=== PATIENT | male | born 1955 | race Caucasian/White ===

== ENCOUNTER 2020-02-25 13:40 | Inpatient (IN) | payer MEDICAID ==
[~2020-02-25] VITALS: Ht 182.9 cm; Wt 102.1 kg
[2020-02-25] MEDS ORDERED: SODIUM CHLORIDE 0.9% 500 ML IVB ONE (13:53)
[2020-02-25] MEDS ORDERED: NITROGLYCERIN 0.4 MG SL TAB SL PRN (15:15)
[2020-02-25] MEDS ORDERED: MORPHINE SULF INJ 2 MG/ML SYRINGE 1ML IV PRN (15:15)
[2020-02-25] MEDS ORDERED: ACETAMINOPHEN 325 MG TAB PO PRN (15:15)
[2020-02-25 15:33] LABS: Basophils # (auto) 0 10 ^3/uL (0-0.2); Basophils % (auto) 0.3 % (0.0-2.0); Eosinophils # (auto) 0 10 ^3/uL (0-0.8); Hematocrit 46.4 % (41.0-53.0); Hemoglobin 16.1 g/dL (13.5-17.5); Lymphocytes # (auto) 0.6 10 ^3/uL (0.4-5.4); Lymphocytes % (auto) 4.4 % (10.0-50.0); Mean Corpuscular Hemoglobin 31.9 pg (28.0-32.0); Mean Corpuscular Hgb Conc. 34.8 g/dL (32.0-36.0); Mean Corpuscular Volume 91.6 fL (80.0-100.0); Monocytes # (auto) 1.5 10 ^3/uL (0-1.3); Monocytes % (auto) 11.4 % (0.0-12.0); Neutrophils # (auto) 11.1 10 ^3/uL (1.6-8.6); Neutrophils % (auto) 83.9 % (37.0-80.0); Platelet Count (auto) 177 10^3/uL (140-450); Red Blood Cells 5.06 10^6/uL (4.5-5.90); Red Cell Distribution Width 15.7 % (11.8-14.3); White Blood Cell 13.2 10^3/uL (4.4-10.8)
[2020-02-25 15:52] LABS: Alanine Aminotransferase 99 U/L (16-61); Albumin 3.2 g/dL (3.4-5.0); Anion Gap 14 (5-15); Aspartate Aminotransferase 321 U/L (15-37); BUN/Creatinine Ratio 28.4; Blood Alcohol < 3.0 mg/dL (0-5); Blood Urea Nitrogen 40 mg/dL (7-18); Calcium 8.2 mg/dL (8.5-10.1); Carbon Dioxide 22 mmol/L (21-32); Chloride 100 mmol/L (98-107); GFR African American 65 mL/min; GFR Non-African American 54 mL/min; Glucose 76 mg/dL (74-106); Magnesium 2.3 mg/dL (1.6-2.6); Potassium 3.4 mmol/L (3.5-5.1); Sodium 136 mmol/L (136-145)
[2020-02-25 15:55] LABS: Lactic Acid w/Reflex 2.1 mmol/L (0.4-2.0)
[2020-02-25] MEDS: FOLIC ACID 1 MG, MULTIPLE VITAMIN 10 ML, MAGNESIUM SULF SDV 50% 8 MEQ, THIAMINE INJ 100... INJ SCH ×5 (15:56)
[2020-02-25 15:58] LABS: Alkaline Phosphatase 91 U/L (45-117); Bilirubin, Total 1.6 mg/dL (0.2-1.0); Total Protein 7.5 g/dL (6.4-8.2)
[2020-02-25] MEDS ORDERED: LORazepam 2MG/ML-1ML VIAL IV PRN (16:00)
[2020-02-25] MEDS: chlordiazePOXIDE HCL 25 MG CAP PO SCH (17:53)
[2020-02-25] MEDS ORDERED: POTASSIUM EFFERVESENT TAB 25 MEQ PO ONE (18:15)
[2020-02-25] MEDS ORDERED: ONDANSETRON HCL 4 MG/2 ML VIAL IV PRN (18:15)
[2020-02-25] MEDS ORDERED: hydrALAZINE HCL 20 MG/ML VL IV PRN (18:15)
--- NOTE | 2020-02-25 18:18 | NUR ---
WOUND CARE NOTE: Wound care in to see patient per wound care request regarding multiple wounds that are noted present on admission. Patient is 64 y/o male with admitting diagnosis of Metabolic Encephalopathy. Patient is resting in ED bed #12. Patient is awake, alert but not oriented. He's able to assist in turning and repositioning and his Aryan score is 18. Skin/wound assessment done with the assistance of patient' s nurse, SKYLAR Sotelo. Noted patient's bilateral knee, bailey and Rt elbow with multiple scabbed abrasion and scratches. Wounds are covered with black scabs, mayda wound is bright red, no drainage/odor noted. On reports, patient is in rehab facility and he's found running amongst the cactus. Cleansed patient's wounds with Betadine and left open to air per MD order. Photograph of patient's wounds are taken upon admission for reference. All wound stats can be found in nurse intervention wound assessment part. Assisted patient to turn to his L side to examine sacral and back. NO other wound noted, no pressure injury noted. Patient tolerated well. No further wound care monitoring needed at this time. RECOMMENDATION: Nursing to continue Daily/PRN cleaning of multiple wounds with Betadine per MD order, redistribute pressure points with pillows, reconsult for active wound, pressure injury, low Aryan score if 12 and below. Addendum: 02/25/20 at 1853 by April Avila RN Amended: Links added.
[2020-02-25] MEDS ORDERED: LORazepam 2MG/ML-1ML VIAL ONE (18:35)
[2020-02-25] MEDS ORDERED: HALOPERIDOL LACTATE 5 MG/ML INJ VIAL ONE (18:35)
[2020-02-25] MEDS ORDERED: LORazepam 2MG/ML-1ML VIAL IV ONE (18:45)
[2020-02-25] MEDS ORDERED: HALOPERIDOL LACTATE 5 MG/ML INJ VIAL IM ONE (18:45)
[2020-02-25 19:47] LABS: CRP High Sensitivity 5.66 mg/dL (< 0.3)
[2020-02-25 21:05] LABS: Amphetamine Screen, Urine NEGATIVE (NEGATIVE); Barbiturate Scree,Urine NEGATIVE (NEGATIVE); Benzodiazephine Screen, Urine NEGATIVE (NEGATIVE); Cannabinoid Screen, Urine NEGATIVE (NEGATIVE); Cocaine Screen, Urine NEGATIVE (NEGATIVE); Opiate Scree,Urine NEGATIVE (NEGATIVE); Phencyclidine Screen, Urine NEGATIVE (NEGATIVE)
[2020-02-25 21:19] LABS: Urine Bacteria NONE SEEN /hpf (None Seen); Urine Blood 2+ /uL (Negative); Urine Hyaline Cast MOD /lpf (0 - 2); Urine Mucus FEW (None Seen); Urine WBC 2 /hpf (0 - 3)
[2020-02-25 21:27] LABS: Alcohol, Urine < 3.0 mg/dL (0-10)
[2020-02-25] MEDS: METOPROLOL TARTRATE 25 MG TAB PO SCH (22:00)
[2020-02-25] MEDS: ATORVASTATIN 20 MG TAB PO SCH (22:00)
[2020-02-25] MEDS: CLINDAMYCIN 300MG IV 50 ML IV SCH (23:51)
[2020-02-26] MEDS: chlordiazePOXIDE HCL 25 MG CAP PO SCH ×3 (00:11→12:00)
[2020-02-26] MEDS: CLINDAMYCIN 300MG IV 50 ML IV SCH ×3 (06:32→22:05)
[2020-02-26] MEDS: SODIUM CHLORIDE 0.9% 1,000 ML IV SCH ×2 (09:19→17:15)
[2020-02-26] MEDS ORDERED: POTASSIUM CHL 20 Meq TABLET PO ONE ×2 (10:00→16:15)
[2020-02-26] MEDS: METOPROLOL TARTRATE 25 MG TAB PO SCH (10:00)
[2020-02-26] MEDS ORDERED: LISINOPRIL 10 MG TAB PO SCH (10:00)
[2020-02-26] MEDS: FAMOTIDINE 20 MG TAB PO SCH (10:09)
[2020-02-26] MEDS: ASPirin-EC 81 mg tab PO SCH (10:09)
[2020-02-26] MEDS: ADENOSINE 82 MG in GIVE UN-DILUTED 0 ML IV STA (10:32)
[2020-02-26] MEDS: FOLIC ACID 1 MG, MULTIPLE VITAMIN 10 ML, MAGNESIUM SULF SDV 50% 8 MEQ, THIAMINE INJ 100... INJ SCH ×5 (12:00)
[2020-02-26 14:39] LABS: Basophils # (auto) 0 10 ^3/uL (0-0.2); Basophils % (auto) 0.3 % (0.0-2.0); Eosinophils # (auto) 0.1 10 ^3/uL (0-0.8); Eosinophils % (auto) 0.9 % (0.0-7.0); Hematocrit 38.8 % (41.0-53.0); Hemoglobin 13.6 g/dL (13.5-17.5); Lymphocytes # (auto) 0.7 10 ^3/uL (0.4-5.4); Lymphocytes % (auto) 9.8 % (10.0-50.0); Mean Corpuscular Hemoglobin 32.3 pg (28.0-32.0); Mean Corpuscular Hgb Conc. 35.1 g/dL (32.0-36.0); Mean Corpuscular Volume 92.2 fL (80.0-100.0); Monocytes # (auto) 0.8 10 ^3/uL (0-1.3); Monocytes % (auto) 10.9 % (0.0-12.0); Neutrophils # (auto) 5.5 10 ^3/uL (1.6-8.6); Neutrophils % (auto) 78.1 % (37.0-80.0); Nucleated Red Blood Cells % 0.1 %; Platelet Count (auto) 140 10^3/uL (140-450); Red Blood Cells 4.21 10^6/uL (4.5-5.90); Red Cell Distribution Width 15.7 % (11.8-14.3); White Blood Cell 7.1 10^3/uL (4.4-10.8)
[2020-02-26 15:04] LABS: Albumin 2.5 g/dL (3.4-5.0); BUN/Creatinine Ratio 17.3; Calcium 7.4 mg/dL (8.5-10.1)
[2020-02-26 15:08] LABS: Cholesterol 161 mg/dL (< 200)
[2020-02-26 15:11] LABS: HDL Cholesterol 45 mg/dL (40-59); LDL Cholesterol 99 mg/dL (< 100); Triglycerides 101 mg/dL (< 150)
[2020-02-26 15:15] LABS: Bilirubin, Total 0.9 mg/dL (0.2-1.0)
[2020-02-26 15:26] LABS: Potassium 2.9 mmol/L (3.5-5.1)
--- NOTE | 2020-02-26 15:39 | NUR ---
Informed Dr. Daily regarding K 2.9, received new orders, noted and carried it out. Signed: 02/26/20 at 1539 by YONATAN CHRISTINE RN
[2020-02-26] MEDS: POTASSIUM CHL 20MEQ/100ML 100 ML IV SCH ×2 (16:48→18:55)
--- NOTE | 2020-02-26 17:00 | NUR ---
Telemetry admit from ER RIAZ STOREY admitted to Telemetry unit after SBAR received. Patient oriented to YONATAN CHRISTINE, primary RN, unit, room, bed, and unit policies regarding patient care and visiting hours. Patient now on continuous telemetry monitoring, tele box #50 and telemetry reading on arrival to unit is . Patient placed on bedside oxygen, weighed by bed scale and encouraged to call if they need something. All questions and concerns addressed, patient verbalized understanding.
[2020-02-26 17:08] VITALS: BP 113/66
[2020-02-26 17:13] VITALS: BP 113/66
[2020-02-26] MEDS: HYDROcodone-ACET 5/325MG TAB PO PRN (17:47)
--- NOTE | 2020-02-26 19:15 | NUR ---
Opening Shift Note Assumed care of patient. Patient is awake, alert, and oriented x 4. No S/S of respiratory distress noted. Patient is on RA with SpO2 95%. No pain reported at this time. Bed in the lowest position, brakes locked, bed rails up x 2, and call light within reach. IV is asymptomatic and patent. Will continue to monitor. Patient was instructed on POC and to call for assist as needed. Will continue to monitor for changes Q1hr and PRN.
[2020-02-26 20:00] VITALS: BP 144/99
[2020-02-26] MEDS: MORPHINE SULF INJ 2 MG/ML SYRINGE 1ML IV PRN (20:59)
[2020-02-26 22:00] VITALS: BP 144/99
[2020-02-26] MEDS: ATORVASTATIN 20 MG TAB PO SCH (22:05)
[2020-02-27] MEDS: SODIUM CHLORIDE 0.9% 1,000 ML IV SCH ×3 (01:18→15:58)
[2020-02-27] MEDS: MORPHINE SULF INJ 2 MG/ML SYRINGE 1ML IV PRN ×5 (01:18→20:53)
[2020-02-27 05:00] VITALS: BP 133/67
[2020-02-27] MEDS: CLINDAMYCIN 300MG IV 50 ML IV SCH ×3 (06:02→22:45)
--- NOTE | 2020-02-27 07:25 | NUR ---
Opening Shift Note Assumed care of patient, pt awake and alert laying down in bed. Patient is alert and awake with even and unlabored respirations. Pt is on RA with No S/S of distress/SOB at this time. Bed is in lowest position, wheels are locked, side rails up x2, and call light is within reach. Pt currently awaiting a stress test. Pt instructed on POC and to call for assist PRN, will continue to monitor for changes Q1hr and PRN.
[2020-02-27 09:00] VITALS: BP 123/84
--- NOTE | 2020-02-27 09:00 | NUR ---
PATIENT OFF UNIT FOR STRESS TEST BY WHEEL CHAIR. PT IS ALERT AND AWAKE WITH EVEN AND UNLABORED RESPIRATIONS.
[2020-02-27] MEDS: FAMOTIDINE 20 MG TAB PO SCH (10:00)
[2020-02-27] MEDS: ADENOSINE 82 MG in GIVE UN-DILUTED 0 ML IV STA (10:04)
--- NOTE | 2020-02-27 10:25 | NUR ---
PT RETURNED TO FLOOR FROM STRESS TEST. PATIENT ALERT AND AWAKE SITTING UP IN BED. PATIENT IS ON ROOM AIR WITH EVEN AND UNLABORED RESPIRATIONS. PT C/O PAIN ON LEFT SIDE WILL BRING PAIN MEDICATION.
[2020-02-27] MEDS: ASPirin-EC 81 mg tab PO SCH (11:17)
[2020-02-27] MEDS: HYDROcodone-ACET 5/325MG TAB PO PRN ×2 (11:20→18:20)
[2020-02-27 11:38] LABS: Magnesium 2.4 mg/dL (1.6-2.6); Potassium 3.7 mmol/L (3.5-5.1)
[2020-02-27 13:00] VITALS: BP 130/80
[2020-02-27] MEDS: FOLIC ACID 1 MG, MULTIPLE VITAMIN 10 ML, MAGNESIUM SULF SDV 50% 8 MEQ, THIAMINE INJ 100... INJ SCH ×5 (14:05)
--- NOTE | 2020-02-27 14:45 | NUR ---
PT C/O ANXIETY PT C/O OF ANXIETY AND BEING RESTLESS. PT REQUESTING ATIVAN. WILL GIVE. WILL CONTINUE TO MONITOR Q1H AND PRN.
[2020-02-27] MEDS: LORazepam 2MG/ML-1ML VIAL IV PRN ×2 (14:52→22:45)
--- NOTE | 2020-02-27 16:30 | NUR ---
Rounds Patient awake and alert laying in bed. No S/S of distress/SOB. Will continue to monitor changes q1hr and PRN.
[2020-02-27 17:00] VITALS: BP 151/90
--- NOTE | 2020-02-27 17:30 | NUR ---
patient up walking around nurses station with PT. Pt requiring standby / contact guard assistance. Patient tolerating well. Will continue to monitor q1h and PRN.
--- NOTE | 2020-02-27 18:58 | NUR ---
Closing Note Patient awake and alert laying in bed. No S/S of distress/SOB or pain. Bed is in lowest position, wheels are locked, side rails up x2, and call light is within reach. Care Endorsed to NOC RN.
--- NOTE | 2020-02-27 19:20 | NUR ---
Opening Shift Note Received report and assumed care of patient. Patient is awake and alert. No signs or symptoms of distress noted. Patient complaining of left rib pain 9/10. Patient is not due for pain medications at this time. Offered patient nonpharmacological interventions. Instructed patient on plan of care and to call for assistance as needed. Will continue to monitor.
[2020-02-27 22:04] VITALS: BP 148/79
[2020-02-27] MEDS: ATORVASTATIN 20 MG TAB PO SCH (22:45)
[2020-02-28] MEDS: MORPHINE SULF INJ 2 MG/ML SYRINGE 1ML IV PRN ×2 (04:18→10:40)
[2020-02-28 05:00] VITALS: BP 148/80
[2020-02-28] MEDS: CLINDAMYCIN 300MG IV 50 ML IV SCH (05:35)
[2020-02-28] MEDS: LORazepam 2MG/ML-1ML VIAL IV PRN ×3 (05:35→20:02)
[2020-02-28] MEDS: SODIUM CHLORIDE 0.9% 1,000 ML IV SCH (05:40)
[2020-02-28 05:49] LABS: BUN/Creatinine Ratio 15.2; Calcium 7.2 mg/dL (8.5-10.1); Potassium 3.6 mmol/L (3.5-5.1)
[2020-02-28] MEDS: HYDROcodone-ACET 5/325MG TAB PO PRN ×3 (05:51→21:13)
--- NOTE | 2020-02-28 07:30 | NUR ---
Opening Shift Note Assumed care of patient, awake and alert. No S/S of distress/SOB OR PAIN. Instructed on POC and to call for assist PRN, will continue to monitor for changes Q1hr and PRN.
[2020-02-28] MEDS: chlordiazePOXIDE HCL 25 MG CAP PO PRN ×2 (08:25→18:21)
[2020-02-28] MEDS: ASPirin-EC 81 mg tab PO SCH (08:28)
[2020-02-28] MEDS: FAMOTIDINE 20 MG TAB PO SCH (08:37)
[2020-02-28 09:05] VITALS: BP 156/86
[2020-02-28] MEDS: BENAZEPRIL HCL 10 MG TAB PO SCH (10:38)
[2020-02-28] MEDS: FOLIC ACID 1 MG, MULTIPLE VITAMIN 10 ML, MAGNESIUM SULF SDV 50% 8 MEQ, THIAMINE INJ 100... INJ SCH ×5 (12:22)
[2020-02-28 13:14] VITALS: BP 161/78
[2020-02-28] MEDS ORDERED: cloNIDine HCL 0.1 MG TAB PO PRN (15:45)
[2020-02-28 16:37] VITALS: BP 154/86
[2020-02-28] MEDS: ACETAMINOPHEN 500 MG TAB PO PRN (18:21)
--- NOTE | 2020-02-28 18:23 | NUR ---
PT NOTES PT EATING DINNER. NO DISTRESS NOTED. C/O A HEADACHE. NOTED VISIBLE SHAKING. PATIENT GIVEN TYLENOL AND LIBRIUM, PO. TOLERATED WELL.
--- NOTE | 2020-02-28 19:21 | NUR ---
Opening Shift Note Received report and assumed care of patient. Patient is awake and alert. No signs or symptoms of distress noted, patient states rib pain level is 3/10. Patient repositioned for comfort. Instructed patient on plan of care and to call for assistance as needed. Will continue to monitor.
[2020-02-28] MEDS: ATORVASTATIN 20 MG TAB PO SCH (21:11)
[2020-02-28 22:20] VITALS: BP 129/80
[2020-02-29 05:00] VITALS: BP 156/83
[2020-02-29] MEDS: HYDROcodone-ACET 5/325MG TAB PO PRN ×2 (05:07→11:59)
[2020-02-29] MEDS: LORazepam 2MG/ML-1ML VIAL IV PRN ×3 (05:39→17:14)
[2020-02-29] MEDS: ACETAMINOPHEN 500 MG TAB PO PRN (06:52)
[2020-02-29] MEDS: BENAZEPRIL HCL 10 MG TAB PO SCH (08:44)
[2020-02-29] MEDS: ASPirin-EC 81 mg tab PO SCH (08:44)
[2020-02-29 08:50] VITALS: BP 142/73
[2020-02-29] MEDS: FAMOTIDINE 20 MG TAB PO SCH (10:00)
[2020-02-29] MEDS ORDERED: THIAMINE HCL 100 MG TAB PO SCH (10:00)
[2020-02-29] MEDS ORDERED: MULTIPLE VITAMINS W/ MINERALS TAB PO SCH (10:00)
--- NOTE | 2020-02-29 10:45 | NUR ---
TELE PSYCH EVAL IN PROGRESS
--- NOTE | 2020-02-29 11:10 | NUR ---
WOUND CARE PICS TAKEN
[2020-02-29 13:00] VITALS: BP 131/85
--- NOTE | 2020-02-29 13:00 | NUR ---
CALLED FOR TELE-PSYCH EVALUATION REPORT. PER SHOE ASSOCIATE, SHE WILL FAX THE REPORT/RECOMMENDATION.
--- NOTE | 2020-02-29 13:20 | NUR ---
Nutrition Assessment Notes Please refer to link for full assessment notes. Est Energy needs: 6410-0621 kcals (17-20 kcal/kgBW) Est Protein needs: 121-162 gms/day (1.5-2.0 gm/kgIBW) Will continue to monitor and reassess prn. Addendum: 02/29/20 at [address] Amended: Links added.
--- NOTE | 2020-02-29 15:17 | NUR ---
Assessment Patient is a 64-year-old male who is alert and oriented. Prior to admission patient reside at [facility] in [place]. Per patient he is not homeless. Patient stated he will return to [facility] in [place] and his sister will transport him home Informed patient if sister is unable to transport him home we can provide him with a taxi voucher. Patient informed me he received SSI with an amount of [id number]. Patient verbalize understanding discharge plan. Addendum: 02/29/20 at 1518 by LIBRADO MCINTOSH Amended: Links added.
--- NOTE | 2020-02-29 15:33 | NUR ---
PT DECLINED P.T. TODAY.
--- NOTE | 2020-02-29 15:53 | NUR ---
CALLED PT'S SISTER, ANGELI, RE: DISCHARGE. MESSAGE LEFT. WAITING FOR CALL BACK.
[2020-02-29 16:19] VITALS: BP 138/75
--- NOTE | 2020-02-29 17:15 | NUR ---
TRIED CALLING PT'S SISTER AGAIN. MESSAGE FULL. UNABLE TO LEAVE A MESSAGE
--- NOTE | 2020-02-29 17:23 | NUR ---
PER PT, HE CAN GO IN A TAXI AND SOMEONE WILL BE AT [facility] FREE GNOSTICISM TO LET HIM IN. ELECTRONIC COMMUNICATIONS TECHNICIAN CONTACTED FOR A TAXI VOUCHER.
[2020-02-29 17:32] VITALS: BP 142/73
--- NOTE | 2020-02-29 18:26 | NUR ---
[facility] WILL BE HERE IN 20 MINUTES
--- NOTE | 2020-02-29 19:15 | NUR ---
PRESCRIPTION NOTES PT WASN'T ABLE TO GET HIS PRESCRIPTION MEDICATION FROM [facility] DUE TO CO-PAY SO I SPOKE TO [facility] FREE COORDINATOR NAMED ANUSHA AND I TOLD HIM ABOUT THE PRESCRIPTIONS THAT THE PATIENT HAVE. ANUSHA WILL CALL [facility] TOMORROW TO ASK THEM TO TRANSFER THE PRESCRIPTIONS TO THE [facility] NEXT TO THEIR FACILITY. PER ANUSHA, PT IS NOT ALLOWED TO TAKE ANY NARCOTICS OR ANTIDEPRESSANT WHILE IN THEIR FACILITY BUT WILL HOLD THE MEDICATION FOR PATIENT AND WILL ADMINISTER IT IF NECESSARY. I INFORMED ANUSHA THAT THE ANTI-DEPRESSANT WAS RECOMMENDED BY THE PSYCHIATRIST FOR HIS DEPRESSION.
== END 2020-02-29 19:15 | disposition home or self-care (01) | DRG 351 ==
LOC: ER 13:40 → EDBD 13:40 → TELE 13:41 → TELE-WESTW 02-26 15:30
PROVIDERS: ADMIT Nurse Practitioner Acute Care; ATTEND Internal Medicine
DX: M62.82 Rhabdomyolysis (principal); N17.0 Acute kidney failure with tubular necrosis; R65.11 Systemic inflammatory response syndrome (SIRS) of non-infectious origin with acute organ dysfunction; G92 Toxic encephalopathy; I42.7 Cardiomyopathy due to drug and external agent; E44.1 Mild protein-calorie malnutrition; F22 Delusional disorders; E87.6 Hypokalemia; E66.9 Obesity, unspecified; F12.90 Cannabis use, unspecified, uncomplicated; G89.29 Other chronic pain; M54.9 Dorsalgia, unspecified; R79.89 Other specified abnormal findings of blood chemistry; S22.42XA Multiple fractures of ribs, left side, initial encounter for closed fracture; I11.9 Hypertensive heart disease without heart failure; S80.212A Abrasion, left knee, initial encounter; S80.211A Abrasion, right knee, initial encounter; W18.39XA Other fall on same level, initial encounter; E78.5 Hyperlipidemia, unspecified; F11.10 Opioid abuse, uncomplicated; Z86.73 Personal history of transient ischemic attack (TIA), and cerebral infarction without residual deficits; Z79.899 Other long term (current) drug therapy; Z80.9 Family history of malignant neoplasm, unspecified; Z59.0 Homelessness; Z87.828 Personal history of other (healed) physical injury and trauma; Z91.14 Patient's other noncompliance with medication regimen; Y93.89 Activity, other specified; Y92.89 Other specified places as the place of occurrence of the external cause; Y99.8 Other external cause status; Z68.30 Body mass index [BMI] 30.0-30.9, adult; F10.10 Alcohol abuse, uncomplicated
CPT/HCPCS: 36415; 70450; 71101; 78452; 80048; 80053; 80061; 80307; 80320; 81001; 82140; 82550; 83605; 83735; 84132; 84484; 85025; 86141; 93005; 93017; 93306; G0378; J0153; J3480; J3490

== ENCOUNTER 2020-03-03 17:07 | Inpatient (IN) | payer MEDICAID ==
[~2020-03-03] VITALS: Ht 182.9 cm; Wt 101.0 kg
[2020-03-03] MEDS ORDERED: SODIUM CHLORIDE 0.9% 500 ML IV ONE (17:37)
[2020-03-03 18:29] LABS: Basophils # (auto) 0.1 10 ^3/uL (0-0.2); Basophils % (auto) 0.5 % (0.0-2.0); Eosinophils # (auto) 0 10 ^3/uL (0-0.8); Eosinophils % (auto) 0.4 % (0.0-7.0); Hematocrit 29.3 % (41.0-53.0); Hemoglobin 9.9 g/dL (13.5-17.5); Lymphocytes # (auto) 0.7 10 ^3/uL (0.4-5.4); Lymphocytes % (auto) 7.2 % (10.0-50.0); Mean Corpuscular Hemoglobin 31.9 pg (28.0-32.0); Mean Corpuscular Hgb Conc. 33.6 g/dL (32.0-36.0); Mean Corpuscular Volume 94.8 fL (80.0-100.0); Monocytes # (auto) 1.1 10 ^3/uL (0-1.3); Monocytes % (auto) 10.3 % (0.0-12.0); Neutrophils # (auto) 8.4 10 ^3/uL (1.6-8.6); Neutrophils % (auto) 81.6 % (37.0-80.0); Platelet Count (auto) 431 10^3/uL (140-450); Red Blood Cells 3.09 10^6/uL (4.5-5.90); Red Cell Distribution Width 16.2 % (11.8-14.3); White Blood Cell 10.3 10^3/uL (4.4-10.8)
[2020-03-03] MEDS ORDERED: NOREPINEPHRINE 8 MG/250ML KIT 250 ML IV ONE (18:41)
[2020-03-03 18:44] LABS: BUN/Creatinine Ratio 38.3; Calcium 7.2 mg/dL (8.5-10.1); Magnesium 1.9 mg/dL (1.6-2.6); Potassium 4.5 mmol/L (3.5-5.1)
[2020-03-03] MEDS: NOREPINEPHRINE 8 MG/250ML KIT 250 ML IV SCH (18:46)
[2020-03-03 18:54] LABS: Bilirubin, Total 0.2 mg/dL (0.2-1.0)
[2020-03-03 20:39] LABS: Hematocrit 30.3 % (41.0-53.0); Hemoglobin 10.3 g/dL (13.5-17.5)
[2020-03-03] MEDS ORDERED: ONDANSETRON HCL 4 MG/2 ML VIAL IV PRN (21:30)
[2020-03-03] MEDS ORDERED: PANTOPRAZOLE 40mg/50ML NS AE 50 ML IV ONE (21:30)
[2020-03-03] MEDS ORDERED: ALBUMIN 5% 250 ML IV ONE (21:30)
[2020-03-03] MEDS ORDERED: NITROGLYCERIN 0.4 MG SL TAB SL PRN (21:30)
[2020-03-03] MEDS ORDERED: MORPHINE SULF INJ 2 MG/ML SYRINGE 1ML IV PRN (21:30)
[2020-03-03] MEDS: SODIUM CHLORIDE 0.9% 1,000 ML IV SCH (22:10)
[2020-03-03] MEDS: ACETAMINOPHEN 325 MG TAB PO PRN (23:38)
[2020-03-04] VITALS (64 sets, daily range): BP systolic 84–124; BP diastolic 32–68
[2020-03-04 00:03] LABS: INR 1.05 (0.9-1.15); Partial Thromboplastin Time 25.6 sec (23.64-32.05)
[2020-03-04] MEDS: PANTOPRAZOLE 40mg/50ML NS AE 50 ML IV SCH ×5 (03:05→19:49)
[2020-03-04 04:44] LABS: White Blood Cell 10.1 10^3/uL (4.4-10.8)
[2020-03-04 04:47] LABS: Hematocrit 23.5 % (41.0-53.0); Mean Corpuscular Hemoglobin 31.9 pg (28.0-32.0); Mean Corpuscular Volume 93.9 fL (80.0-100.0); Platelet Count (auto) 429 10^3/uL (140-450); Red Blood Cells 2.51 10^6/uL (4.5-5.90)
[2020-03-04 05:10] LABS: Potassium 4.2 mmol/L (3.5-5.1)
[2020-03-04 05:15] LABS: Band Neutrophils % (manual) 0; Basophils % (manual) 0 (0.0-2.0); Blast Cells 0; Eosinophils % (manual) 0 (0-7); Metamyelocytes % 0; Myelocytes % 0; Promyelocytes % 0; Reactive Lymphocytes 0
[2020-03-04 05:16] LABS: Albumin 2.4 g/dL (3.4-5.0); BUN/Creatinine Ratio 35.3; Bilirubin, Total 0.3 mg/dL (0.2-1.0); Calcium 7.3 mg/dL (8.5-10.1)
[2020-03-04 06:06] LABS: Lymphocytes % (manual) 21 (10.0-50.0); Monocytes % (manual) 10 (0-12)
[2020-03-04] MEDS: SODIUM CHLORIDE 0.9% 1,000 ML IV SCH ×3 (11:55→20:14)
[2020-03-04] MEDS: ACETAMINOPHEN 325 MG TAB PO PRN ×2 (12:52→20:26)
[2020-03-04 13:46] LABS: Hematocrit 22.7 % (41.0-53.0); Hemoglobin 7.5 g/dL (13.5-17.5)
[2020-03-04] MEDS: NOREPINEPHRINE 8 MG/250ML KIT 250 ML IV SCH (18:10)
[2020-03-04 20:00] LABS: Hemoglobin 7.6 g/dL (13.5-17.5)
[2020-03-05] VITALS (58 sets, daily range): BP systolic 71–143; BP diastolic 33–70
[2020-03-05] MEDS: PANTOPRAZOLE 40mg/50ML NS AE 50 ML IV SCH ×5 (00:46→22:30)
[2020-03-05 04:24] LABS: Basophils # (auto) 0.1 10 ^3/uL (0-0.2); Basophils % (auto) 0.8 % (0.0-2.0); Eosinophils # (auto) 0.1 10 ^3/uL (0-0.8); Eosinophils % (auto) 1.1 % (0.0-7.0); Hematocrit 16.9 % (41.0-53.0); Lymphocytes # (auto) 1.4 10 ^3/uL (0.4-5.4); Lymphocytes % (auto) 12.3 % (10.0-50.0); Mean Corpuscular Hemoglobin 31.7 pg (28.0-32.0); Mean Corpuscular Hgb Conc. 33.7 g/dL (32.0-36.0); Mean Corpuscular Volume 94.1 fL (80.0-100.0); Monocytes # (auto) 0.9 10 ^3/uL (0-1.3); Monocytes % (auto) 8.2 % (0.0-12.0); Neutrophils # (auto) 8.6 10 ^3/uL (1.6-8.6); Neutrophils % (auto) 77.6 % (37.0-80.0); Nucleated Red Blood Cells % 0.3 %; Platelet Count (auto) 364 10^3/uL (140-450); Red Cell Distribution Width 15.6 % (11.8-14.3); White Blood Cell 11.1 10^3/uL (4.4-10.8)
[2020-03-05 04:26] LABS: Calcium 7.3 mg/dL (8.5-10.1); Hemoglobin 5.7 g/dL (13.5-17.5); Magnesium 1.9 mg/dL (1.6-2.6); Potassium 3.8 mmol/L (3.5-5.1)
[2020-03-05 04:28] LABS: BUN/Creatinine Ratio 28.8
[2020-03-05] MEDS ORDERED: LIDOCAINE VISCOUS 2% 15ML UD ONE (08:12)
[2020-03-05] MEDS ORDERED: MIDAZOLAM HCL 5 MG/ML-1ML VIAL ONE (08:12)
[2020-03-05] MEDS ORDERED: diphenhdrAMINE HCL 50 MG/1 ML VL ONE (08:12)
[2020-03-05] MEDS ORDERED: fentaNYL CITRATE 100 MCG/2 ML VL ONE (08:12)
[2020-03-05] MEDS ORDERED: SODIUM CHLORIDE LOCK 10 ML ONE (08:13)
[2020-03-05 10:13] LABS: Hematocrit 19.9 % (41.0-53.0)
[2020-03-05 10:15] LABS: Hemoglobin 6.6 g/dL (13.5-17.5)
[2020-03-05] MEDS ORDERED: MAGNESIUM SULFATE 1GM/100ML 100 ML IV ONE (13:15)
[2020-03-05] MEDS: SODIUM CHLORIDE 0.9% 1,000 ML IV SCH (13:26)
[2020-03-05] MEDS ORDERED: EPINEPHrine HCL 1 MG/1 ML AMP ONE (15:52)
[2020-03-05] MEDS ORDERED: EPINEPHrine HCL 1 MG/10 ML SYRG ONE (15:53)
[2020-03-05] MEDS: SUCRALFATE 1 GM/10 ML ORAL SUSP PO SCH ×2 (16:52→22:00)
[2020-03-05] MEDS: GOLYTELY 4L KIT PO SCH (17:02)
[2020-03-05] MEDS: ACETAMINOPHEN 325 MG TAB PO PRN (19:58)
[2020-03-05 22:18] LABS: Hematocrit 19.4 % (41.0-53.0)
[2020-03-05 22:21] LABS: Hemoglobin 6.7 g/dL (13.5-17.5)
[2020-03-06] VITALS (42 sets, daily range): BP systolic 86–141; BP diastolic 33–67
[2020-03-06] MEDS: PANTOPRAZOLE 40mg/50ML NS AE 50 ML IV SCH ×2 (03:30→08:50)
[2020-03-06] MEDS: SODIUM CHLORIDE 0.9% 1,000 ML IV SCH ×2 (06:08→22:35)
[2020-03-06] MEDS: GOLYTELY 4L KIT PO SCH ×2 (06:48→16:00)
[2020-03-06] MEDS: SUCRALFATE 1 GM/10 ML ORAL SUSP PO SCH ×4 (06:48→22:00)
[2020-03-06 07:46] LABS: Hematocrit 21.3 % (41.0-53.0); Hemoglobin 7.3 g/dL (13.5-17.5); Red Blood Cells 2.34 10^6/uL (4.5-5.90)
[2020-03-06 07:48] LABS: Mean Corpuscular Hemoglobin 31.3 pg (28.0-32.0); Mean Corpuscular Hgb Conc. 34.4 g/dL (32.0-36.0); Mean Corpuscular Volume 90.8 fL (80.0-100.0); Platelet Count (auto) 257 10^3/uL (140-450); Red Cell Distribution Width 16.3 % (11.8-14.3); White Blood Cell 9.6 10^3/uL (4.4-10.8)
[2020-03-06 07:56] LABS: Potassium 3.7 mmol/L (3.5-5.1)
[2020-03-06 08:02] LABS: Basophils % (manual) 0 (0.0-2.0); Blast Cells 0; Eosinophils % (manual) 0 (0-7); Promyelocytes % 0; Reactive Lymphocytes 0
[2020-03-06 08:53] LABS: Band Neutrophils % (manual) 2; Lymphocytes % (manual) 20 (10.0-50.0); Metamyelocytes % 1; Monocytes % (manual) 6 (0-12); Myelocytes % 2
[2020-03-06] MEDS: PANTOPRAZOLE 40 MG/10 ML VIAL INJ IV SCH ×2 (10:00→22:00)
[2020-03-06] MEDS: ACETAMINOPHEN 325 MG TAB PO PRN ×2 (11:15→20:04)
[2020-03-06] MEDS ORDERED: POTASSIUM CHL 20 Meq TABLET PO ONE (11:30)
[2020-03-06 11:39] LABS: Hemoglobin 7.5 g/dL (13.5-17.5)
[2020-03-06 11:41] LABS: Hematocrit 21.9 % (41.0-53.0)
[2020-03-06 18:35] LABS: Hemoglobin 8.4 g/dL (13.5-17.5)
[2020-03-06 18:37] LABS: Hematocrit 24.6 % (41.0-53.0)
[2020-03-07] VITALS (29 sets, daily range): BP systolic 101–166; BP diastolic 45–80
[2020-03-07 04:09] LABS: Hemoglobin 7.9 g/dL (13.5-17.5)
[2020-03-07 04:12] LABS: Hematocrit 23.3 % (41.0-53.0); Mean Corpuscular Hemoglobin 30.9 pg (28.0-32.0); Mean Corpuscular Hgb Conc. 33.9 g/dL (32.0-36.0); Mean Corpuscular Volume 91.1 fL (80.0-100.0); Platelet Count (auto) 318 10^3/uL (140-450); Red Blood Cells 2.55 10^6/uL (4.5-5.90); Red Cell Distribution Width 16.3 % (11.8-14.3); White Blood Cell 7.9 10^3/uL (4.4-10.8)
[2020-03-07 04:28] LABS: Basophils % (manual) 0 (0.0-2.0); Blast Cells 0; Eosinophils % (manual) 0 (0-7); Metamyelocytes % 0; Myelocytes % 0; Promyelocytes % 0; Reactive Lymphocytes 0
[2020-03-07 04:36] LABS: Potassium 3.8 mmol/L (3.5-5.1)
[2020-03-07 04:43] LABS: BUN/Creatinine Ratio 6.3; Calcium 7.3 mg/dL (8.5-10.1); Magnesium 2.2 mg/dL (1.6-2.6)
[2020-03-07 05:14] LABS: Band Neutrophils % (manual) 2; Lymphocytes % (manual) 12 (10.0-50.0)
[2020-03-07 05:15] LABS: Monocytes % (manual) 5 (0-12)
[2020-03-07] MEDS ORDERED: MAGNESIUM CITRATE SOLUTION 300 ML BTL PO ONE (06:00)
[2020-03-07] MEDS: SUCRALFATE 1 GM/10 ML ORAL SUSP PO SCH ×4 (06:43→22:01)
[2020-03-07] MEDS: GOLYTELY 4L KIT PO SCH (07:00)
[2020-03-07] MEDS: PANTOPRAZOLE 40 MG/10 ML VIAL INJ IV SCH ×2 (09:46→22:00)
[2020-03-07] MEDS ORDERED: SODIUM CHLORIDE LOCK 10 ML ONE (10:38)
[2020-03-07] MEDS ORDERED: diphenhdrAMINE HCL 50 MG/1 ML VL ONE (10:38)
[2020-03-07] MEDS ORDERED: SODIUM CHLORIDE 0.9% 1,000 ML IV SCH (11:00)
[2020-03-07] MEDS: fentaNYL CITRATE 100 MCG/2 ML VL ONE ×2 (14:00→14:03)
[2020-03-07] MEDS: MIDAZOLAM HCL 5 MG/ML-1ML VIAL ONE ×3 (14:00→14:04)
[2020-03-07] MEDS: ACETAMINOPHEN 325 MG TAB PO PRN (17:28)
[2020-03-08] MEDS: ACETAMINOPHEN 325 MG TAB PO PRN ×2 (03:03→20:23)
[2020-03-08 05:00] VITALS: BP 129/71
[2020-03-08] MEDS: SUCRALFATE 1 GM/10 ML ORAL SUSP PO SCH ×4 (05:59→22:26)
[2020-03-08 07:17] LABS: Hematocrit 24.9 % (41.0-53.0); Hemoglobin 8.5 g/dL (13.5-17.5)
[2020-03-08 08:50] VITALS: BP 130/74
[2020-03-08] MEDS: PANTOPRAZOLE 40 MG/10 ML VIAL INJ IV SCH ×2 (11:02→22:26)
[2020-03-08 12:31] VITALS: BP 129/79
[2020-03-08 16:40] VITALS: BP 154/84
[2020-03-08 22:00] VITALS: BP 110/56
[2020-03-09 05:00] VITALS: BP 138/79
[2020-03-09 05:56] LABS: Basophils # (auto) 0.2 10 ^3/uL (0-0.2); Basophils % (auto) 2.6 % (0.0-2.0); Eosinophils # (auto) 0.1 10 ^3/uL (0-0.8); Eosinophils % (auto) 2.2 % (0.0-7.0); Hematocrit 26.9 % (41.0-53.0); Hemoglobin 9.1 g/dL (13.5-17.5); Lymphocytes # (auto) 1.1 10 ^3/uL (0.4-5.4); Lymphocytes % (auto) 16.5 % (10.0-50.0); Mean Corpuscular Hemoglobin 31.3 pg (28.0-32.0); Mean Corpuscular Hgb Conc. 33.8 g/dL (32.0-36.0); Mean Corpuscular Volume 92.5 fL (80.0-100.0); Monocytes # (auto) 0.5 10 ^3/uL (0-1.3); Monocytes % (auto) 7.3 % (0.0-12.0); Neutrophils # (auto) 4.8 10 ^3/uL (1.6-8.6); Neutrophils % (auto) 71.4 % (37.0-80.0); Nucleated Red Blood Cells % 0.1 %; Platelet Count (auto) 405 10^3/uL (140-450); Red Blood Cells 2.91 10^6/uL (4.5-5.90); White Blood Cell 6.8 10^3/uL (4.4-10.8)
[2020-03-09 06:17] LABS: INR 0.97 (0.9-1.15)
[2020-03-09] MEDS: SUCRALFATE 1 GM/10 ML ORAL SUSP PO SCH ×4 (06:23→21:36)
[2020-03-09 06:30] LABS: Potassium 4.2 mmol/L (3.5-5.1)
[2020-03-09 06:36] LABS: Albumin 2.3 g/dL (3.4-5.0); BUN/Creatinine Ratio 8.2; Bilirubin, Total 0.4 mg/dL (0.2-1.0); Calcium 7.7 mg/dL (8.5-10.1); Magnesium 2.5 mg/dL (1.6-2.6)
[2020-03-09 06:40] LABS: Total Protein 5.2 g/dL (6.4-8.2)
[2020-03-09 09:00] VITALS: BP 133/76
[2020-03-09] MEDS: PANTOPRAZOLE 40 MG/10 ML VIAL INJ IV SCH ×2 (10:39→21:35)
[2020-03-09] MEDS: ACETAMINOPHEN 325 MG TAB PO PRN ×2 (10:40→19:59)
[2020-03-09 12:34] VITALS: BP 126/69
[2020-03-09] MEDS ORDERED: ASCO500T11 PO (15:56)
[2020-03-09] MEDS ORDERED: PANT40TA2 PO (15:56)
[2020-03-09] MEDS ORDERED: FER325T PO (15:56)
[2020-03-09] MEDS ORDERED: SUCR1SUS5 PO (15:57)
[2020-03-09 16:47] VITALS: BP 128/82
[2020-03-09 22:00] VITALS: BP 138/70
[2020-03-10 05:00] VITALS: BP 145/76
[2020-03-10] MEDS: SUCRALFATE 1 GM/10 ML ORAL SUSP PO SCH ×4 (06:24→21:31)
[2020-03-10] MEDS: ACETAMINOPHEN 325 MG TAB PO PRN ×2 (08:52→21:31)
[2020-03-10] MEDS: PANTOPRAZOLE 40 MG/10 ML VIAL INJ IV SCH (08:52)
[2020-03-10 09:00] VITALS: BP 124/65
[2020-03-10 12:56] VITALS: BP 139/82
[2020-03-10 16:49] VITALS: BP 120/70
[2020-03-10] MEDS: PANTOPRAZOLE 40 MG TAB PO SCH (21:31)
[2020-03-10 22:18] VITALS: BP 139/81
[2020-03-11 05:00] VITALS: BP 123/77
[2020-03-11] MEDS: SUCRALFATE 1 GM/10 ML ORAL SUSP PO SCH ×2 (06:23→12:23)
[2020-03-11] MEDS: ACETAMINOPHEN 325 MG TAB PO PRN (06:24)
[2020-03-11 08:43] VITALS: BP 137/70
[2020-03-11] MEDS: PANTOPRAZOLE 40 MG TAB PO SCH (09:46)
[2020-03-11 13:00] VITALS: BP 123/50
[2020-03-11 17:00] VITALS: BP 113/67
[2020-03-11] MEDS ORDERED: FERROUS SULFATE 325 MG TAB PO SCH (18:00)
== END 2020-03-11 17:10 | DRG 241 ==
LOC: ER 17:07 → EDBD 17:07 → TELE 17:08 → ICU WEST 23:25 → TELE-WESTW 03-07 17:00
PROVIDERS: ADMIT Nurse Practitioner; ATTEND Internal Medicine
PROC: 30233N1 Transfusion of Nonautologous Red Blood Cells into Peripheral Vein, Percutaneous Approach (ICD-10-PCS; 2020-03-04)
PROC: 0DB88ZX Excision of Small Intestine, Via Natural or Artificial Opening Endoscopic, Diagnostic (ICD-10-PCS; 2020-03-05)
PROC: 0DB68ZX Excision of Stomach, Via Natural or Artificial Opening Endoscopic, Diagnostic (ICD-10-PCS; principal; 2020-03-05 14:30)
PROC: 0DJD8ZZ Inspection of Lower Intestinal Tract, Via Natural or Artificial Opening Endoscopic (ICD-10-PCS; 2020-03-07)
DX: K29.71 Gastritis, unspecified, with bleeding (principal); R57.1 Hypovolemic shock; E43 Unspecified severe protein-calorie malnutrition; K22.11 Ulcer of esophagus with bleeding; I42.6 Alcoholic cardiomyopathy; I95.9 Hypotension, unspecified; D62 Acute posthemorrhagic anemia; K29.81 Duodenitis with bleeding; E66.9 Obesity, unspecified; K44.9 Diaphragmatic hernia without obstruction or gangrene; K57.30 Diverticulosis of large intestine without perforation or abscess without bleeding; K64.8 Other hemorrhoids; F10.20 Alcohol dependence, uncomplicated; Z75.1 Person awaiting admission to adequate facility elsewhere; Z68.30 Body mass index [BMI] 30.0-30.9, adult; I25.2 Old myocardial infarction; N40.0 Benign prostatic hyperplasia without lower urinary tract symptoms; Z80.9 Family history of malignant neoplasm, unspecified; Z82.49 Family history of ischemic heart disease and other diseases of the circulatory system; Y90.9 Presence of alcohol in blood, level not specified; Z03.818 Encounter for observation for suspected exposure to other biological agents ruled out
CPT/HCPCS: 36415; 71045; 74176; 80048; 80053; 82270; 83735; 83880; 84100; 84132; 84484; 85007; 85014; 85018; 85025; 85027; 85610; 85730; 86850; 86900; 86901; 86920; 87081; 93005; 97110; 97163; 97530; 99291; C9113; G0378; J0171; J2250